=== PATIENT | female | born 1965 | race Caucasian/White ===

== ENCOUNTER 2018-06-25 15:32 | Emergency (ER) | payer MEDICAID ==
[2018-06-25 15:45] VITALS: BP 135/67
--- NOTE | 2018-06-25 15:59 | ED Physician Documentation ---
PD HPI HEENT - Stated complaint Stated Complaint: TOOTH PX - Chief complaint Chief Complaint: Heent - History obtained from History obtained from: Patient - History of Present Illness Timing - onset: How many days ago (4) Timing - duration: Days Timing - details: Abrupt onset (she says was chewing a popsicle or such and had several teeth break. Pain in them and is concerned about infection. Also pain meds. Has dental appt next week.) Location: Tooth (several teeth hurting, mostly left upper.) Associated symptoms: No: Fever Similar symptoms before: Has not had sx before Review of Systems Constitutional: denies: Fever, Chills Nose: denies: Rhinorrhea / runny nose, Congestion Throat: denies: Sore throat Respiratory: denies: Cough GI: denies: Abdominal Pain, Nausea, Vomiting PD PAST MEDICAL HISTORY - Past Medical History Cardiovascular: None Respiratory: Asthma Endocrine/Autoimmune: None GI: Ulcers REED MAN: Endometriosis : None HEENT: None Psych: Anxiety, Panic attacks, Post traumatic stress disorder Musculoskeletal: Fibromyalgia Derm: Other - Past Surgical History Past Surgical History: Yes General: Cholecystectomy, Appendectomy Ortho: Arthroscopic surgery /REED MAN: section, Hysterectomy, Oophrectomy - Present Medications Home Medications: Ambulatory Orders Medication Instructions Recorded Confirmed Butalb/Acetaminophen/Caffeine 1 - 2 tab PO Q6H PRN 01/06/13 06/09/18 [[id number]-Igrn 50-500-40] Zolmitriptan [Zomig] 10 mg PO DAILY PRN 01/06/13 06/09/18 Ondansetron [Zofran Odt] 8 mg PO Q6HR PRN 06/22/13 06/09/18 Antihemoph.fviii,B-Domain Del 2,050 unit IV BID PRN 02/28/14 06/09/18 [Xyntha] Diazepam [Valium] 10 mg PO Q12H PRN 05/26/14 06/09/18 Oxycodone HCl 10 mg PO Q4HR PRN 07/13/14 06/09/18 Diphenhydramine HCl/Zinc Acet 28.3 gm TP ONCE PRN 07/27/14 06/09/18 [Benadryl Itch Stopping Crm] oxyCODONE ER [OxyCONTIN] 40 mg PO BID 09/21/14 06/09/18 Pseudoephedrine [Sudafed] 30 mg PO DAILY 11/15/14 06/09/18 Acetaminophen [Tylenol] 80 mg PO Q4HR PRN 11/16/14 06/09/18 Heparin Sodium,Porcine/Pf [Heparin 5 ml IVP DAILY 11/16/14 06/09/18 1,000 Unit/10 (100/ml)] Albuterol Sulfate [Proair Hfa] 2 puffs INH DAILY PRN 10/25/15 06/09/18 Hydromorphone HCl [Dilaudid] 1 - 2 tab PO Q6H PRN 11/28/15 06/09/18 Estrogens, Conjugated [Premarin] 0.625 mg PO DAILY 03/20/16 06/09/18 Silver Sulfadiazine [Silvadene] 20 gm TP BID 07/14/16 06/09/18 Hyoscyamine Sulfate [Levsin-Sl] 1 - 2 tab SL Q4HR PRN MDD 12 tabs 08/06/16 Antihemoph.fviii,Hek B-Delete 2,000 vial IV BID 09/04/16 06/09/18 [Nuwiq] Azithromycin [Zithromax] 250 mg PO DAILY #4 tablet 06/25/18 Chlorhexidine Gluconate [Peridex] 5 ml MM BID #118 ml 06/25/18 Hydromorphone HCl [Dilaudid] 4 mg PO Q4H PRN #25 tablet 06/25/18 - Allergies Allergies/Adverse Reactions: Allergies Allergy/AdvReac Type Severity Reaction Status Date / Time lidocaine Allergy Severe Respiratory Verified 08/25/17 16:25 morphine Allergy Severe Respiratory Verified 08/25/17 16:25 Penicillins Allergy Severe Respiratory Verified 08/25/17 16:25 acetaminophen Allergy Intermediate Hives Verified 08/25/17 16:25 [From Darvocet-N 100] aminocaproic acid Allergy Intermediate Hives Verified 08/25/17 16:25 [From Amicar] cefaclor [From Ceclor] Allergy Intermediate Hives Verified 08/25/17 16:25 cephalexin monohydrate * Allergy Intermediate Hives Verified 08/25/17 16:25 [From Keflex] codeine [Codeine] Allergy Intermediate Hives Verified 08/25/17 16:25 doxycycline Allergy Intermediate Hives Verified 08/25/17 16:25 Iodinated Contrast- Oral and Allergy Intermediate Respiratory Verified 08/25/17 16:25 IV Dye propoxyphene napsylate * Allergy Intermediate Hives Verified 08/25/17 16:25 [From Darvocet-N 100] aspirin Allergy hemophilia Verified 08/25/17 16:25 hydrocortisone Allergy Anaphylaxis Verified 03/12/18 15:52 ibuprofen Allergy hemphilia Verified 08/25/17 16:25 iodine Allergy Rash Verified 08/25/17 16:25 silver * Allergy Rash Verified 08/25/17 16:25 [From Tegaderm AG Mesh] vancomycin Allergy Unknown Verified 06/09/18 15:44 chlorpromazine HCl * AdvReac Severe Respiratory Verified 08/25/17 16:25 [From Thorazine] NSAIDS (Non-Steroidal AdvReac Severe bleeding Verified 08/25/17 16:25 Anti-Inflamma ellis Allergy Anaphylaxis Uncoded 08/25/17 16:25 - Social History Does the pt smoke?: No Smoking Status: Never smoker Does the pt drink ETOH?: No Does the pt have substance abuse?: No - Immunizations Immunizations are current?: Yes - POLST Patient has POLST: No PD ED PE NORMAL - Vitals Vital signs reviewed: Yes - General General: Alert and oriented X 3, Well developed/nourished - HEENT HEENT: Pharynx benign. No: Dentition benign (several broken teeth that do appear newly broken (sharper edge) with caries concomitant. No appearance of infection. ) - Neck Neck: Supple, no meningeal sign, No adenopathy - Derm Derm: Normal color, Warm and dry - Extremities Extremities: No deformity, No tenderness to palpate - Neuro Neuro: Alert and oriented X 3, No motor deficit, Normal speech Results - Vitals Vitals: Vital Signs - 24 hr 06/25/18 15:42 Temperature 37.0 C Heart Rate 96 Respiratory 14 Rate Blood Pressure 135/67 H O2 Saturation 100 Oxygen O2 Source Room air PD MEDICAL DECISION MAKING - ED course Complexity details: considered differential (has recently broken teeth which are hurting, with chronic pain problems as underlying process. Had taken extra of regular Rx so is short oral Dilaudid for few days until Rx on 8th.), d/w patient Departure - Departure Disposition: 01 Home, Self Care Clinical Impression: Pain due to dental caries Condition: Stable Record reviewed to determine appropriate education?: Yes Instructions: ED Tooth Pain Follow-Up: Vanessa yT MD [Primary Care Provider] - Prescriptions: Azithromycin [Zithromax] 250 mg PO DAILY #4 tablet Chlorhexidine Gluconate [Peridex] 5 ml MM BID #118 ml Hydromorphone HCl [Dilaudid] 4 mg PO Q4H PRN #25 tablet PRN Reason: Pain Comments: Continue usual medications. Use the Dilaudid surgeon orally 1 every 6 hours if needed for pains. Zithromax antibiotic daily for 4 more days. Chlorhexidine oral rinse 2-3 times a day for the next week. Follow-up with a dentist next week as planned. Discharge Date/Time: 06/25/18 16:53
[2018-06-25] MEDS ORDERED: AZITHROMYCIN 250 MG TABLET PO STA (16:26)
[2018-06-25] MEDS ORDERED: HYDROmorphone 1 MG/ML CARPUJECT IM STA (16:26)
== END 2018-06-25 16:53 | disposition home or self-care (01) ==
LOC: ED 15:32
DX: K02.9 Dental caries, unspecified (principal); M79.7 Fibromyalgia
CPT/HCPCS: 96372; 99283; A9270; J1170

== ENCOUNTER 2018-07-28 11:06 | Emergency (ER) | payer MEDICAID ==
[2018-07-28] MEDS ORDERED: HYDROmorphone 2 MG TABLET PO STA (12:20)
[2018-07-28] MEDS ORDERED: fentaNYL 100 MCG/2 ML VIAL IVP STA (12:29)
--- NOTE | 2018-07-28 12:37 | ED Physician Documentation ---
History of Present Illness - Stated complaint Stated Complaint: SIDE PX/SYNCOPE - Chief complaint Chief Complaint: Neuro - Additonal information Additional information: 52-year-old female with a history of chronic syncope presents the emergency department for syncopal episodes in clinic today. The patient was being seen for a rib injury which occurred recently, The patient reports that pain causes her to have more episodes of syncope. The patient reports daily episodes of syncope and has been thoroughly worked up by cardiology neurology. The patient reports that pain is the source of her syncopal episodes. The patient is on chronic pain management with oral Dilaudid. The patient denies chest pain, palpitations, Abdominal pain, Dyspnea on exertion or recent illness. No other associated symptoms. Symptoms are described as moderate. Review of Systems Constitutional: denies: Fever, Chills Eyes: denies: Discharge Ears: denies: Ear pain Nose: denies: Congestion Throat: denies: Sore throat Cardiac: reports: Other (Right-sided chest wall pain). 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 : None HEENT: None Psych: Anxiety, Panic attacks, Post traumatic stress disorder Musculoskeletal: Fibromyalgia Derm: Other Other Past Medical History: hemophilia - Past Surgical History Past Surgical History: Yes General: Cholecystectomy, Appendectomy Ortho: Arthroscopic surgery /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, Hysterectomy, Oophrectomy - Present Medications Home Medications: Ambulatory Orders Medication Instructions Recorded Confirmed Butalb/Acetaminophen/Caffeine 1 - 2 tab PO Q6H PRN 01/06/13 07/28/18 [[id number] 50-500-40] Zolmitriptan [Zomig] 10 mg PO DAILY PRN 01/06/13 07/28/18 Ondansetron [Zofran Odt] 8 mg PO Q6HR PRN 06/22/13 07/28/18 Antihemoph.fviii,B-Domain Del 2,050 unit IV BID PRN 02/28/14 07/28/18 [Xyntha] Diazepam [Valium] 10 mg PO Q12H PRN 05/26/14 07/28/18 Oxycodone HCl 10 mg PO Q4HR PRN 07/13/14 07/28/18 Diphenhydramine HCl/Zinc Acet 28.3 gm TP ONCE PRN 07/27/14 07/28/18 [Benadryl Itch Stopping Crm] oxyCODONE ER [OxyCONTIN] 40 mg PO BID 09/21/14 07/28/18 Pseudoephedrine [Sudafed] 30 mg PO DAILY 11/15/14 07/28/18 Acetaminophen [Tylenol] 80 mg PO Q4HR PRN 11/16/14 07/28/18 Heparin Sodium,Porcine/Pf [Heparin 5 ml IVP DAILY 11/16/14 07/28/18 1,000 Unit/10 (100/ml)] Albuterol Sulfate [Proair Hfa] 2 puffs INH DAILY PRN 10/25/15 07/28/18 Hydromorphone HCl [Dilaudid] 1 - 2 tab PO Q6H PRN 11/28/15 07/28/18 Estrogens, Conjugated [Premarin] 0.625 mg PO DAILY 03/20/16 07/28/18 Silver Sulfadiazine [Silvadene] 20 gm TP BID 07/14/16 07/28/18 Hyoscyamine Sulfate [Levsin-Sl] 1 - 2 tab SL Q4HR PRN MDD 12 tabs 08/06/16 07/28/18 Antihemoph.fviii,Hek B-Delete 2,000 vial IV BID 09/04/16 07/28/18 [Nuwiq] Azithromycin [Zithromax] 250 mg PO DAILY #4 tablet 06/25/18 07/28/18 Chlorhexidine Gluconate [Peridex] 5 ml MM BID #118 ml 06/25/18 07/28/18 Hydromorphone HCl [Dilaudid] 4 mg PO Q4H PRN #25 tablet 06/25/18 07/28/18 - Allergies Allergies/Adverse Reactions: Allergies Allergy/AdvReac Type Severity Reaction Status Date / Time lidocaine Allergy Severe Respiratory Verified 08/25/17 16:25 morphine Allergy Severe Respiratory Verified 08/25/17 16:25 Penicillins Allergy Severe Respiratory Verified 08/25/17 16:25 acetaminophen Allergy Intermediate Hives Verified 08/25/17 16:25 [From Darvocet-N 100] aminocaproic acid Allergy Intermediate Hives Verified 08/25/17 16:25 [From Amicar] cefaclor [From Ceclor] Allergy Intermediate Hives Verified 08/25/17 16:25 cephalexin monohydrate * Allergy Intermediate Hives Verified 08/25/17 16:25 [From Keflex] codeine [Codeine] Allergy Intermediate Hives Verified 08/25/17 16:25 doxycycline Allergy Intermediate Hives Verified 07/28/18 11:38 Iodinated Contrast- Oral and Allergy Intermediate Respiratory Verified 07/28/18 11:38 IV Dye propoxyphene napsylate * Allergy Intermediate Hives Verified 07/28/18 11:38 [From Darvocet-N 100] aspirin Allergy hemophilia Verified 07/28/18 11:38 hydrocortisone Allergy Anaphylaxis Verified 07/28/18 11:38 ibuprofen Allergy hemphilia Verified 07/28/18 11:38 iodine Allergy Rash Verified 07/28/18 11:38 silver * Allergy Rash Verified 07/28/18 11:38 [From Tegaderm AG Mesh] vancomycin Allergy Unknown Verified 07/28/18 11:38 chlorpromazine HCl * AdvReac Severe Respiratory Verified 07/28/18 11:38 [From Thorazine] NSAIDS (Non-Steroidal AdvReac Severe bleeding Verified 07/28/18 11:38 Anti-Inflamma ellis Allergy Anaphylaxis Uncoded 07/28/18 11:38 - Social History Does the pt smoke?: No Smoking Status: Never smoker Does the pt drink ETOH?: No Does the pt have substance abuse?: No - Immunizations Immunizations are current?: Yes - POLST Patient has POLST: No PD ED PE NORMAL - General General: Alert and oriented X 3, No acute distress - HEENT HEENT: Atraumatic, PERRL, EOMI, Ears normal - Neck Neck: Supple, no meningeal sign - Cardiac Cardiac: RRR, Strong equal pulses, Other (The patient is tender in her right sided chest wall, there is no crepitus or subcutaneous emphysema) - Respiratory Respiratory: No respiratory distress, Clear bilaterally - Abdomen Abdomen: Soft, Non tender - Derm Derm: Normal color - Extremities Extremities: No deformity - Neuro Neuro: Alert and oriented X 3, Normal speech - Psych Psych: Normal affect Results - Vitals Vitals: Vital Signs - 24 hr 07/28/18 07/28/18 07/28/18 11:10 12:53 13:58 Temperature 36.2 C L 36.6 C Heart Rate 86 89 87 Respiratory 16 16 16 Rate Blood Pressure 133/93 H 111/59 L 109/70 O2 Saturation 100 97 99 Oxygen O2 Source Room air - EKG (time done) No standard instances Rate: Rate (enter#) (77) Rhythm: NSR Intervals: Normal SC QRS: Normal Ischemia: Non specific changes - Labs Labs: Laboratory Tests 07/28/18 09:55 Troponin I < 0.04 - Rads (name of study) Rib Radiology: Final report received, See rad report (IMPRESSION: No fracture is detected) PD MEDICAL DECISION MAKING - ED course ED course: The patient's syncope is chronic, the patient had labs drawn at the clinic just prior to arrival. Presently, the patient's pain appears to be under control and the patient appears appropriate for discharge since there is no significant change that would necessitate admission to the hospital or specialty consultation. The patient appears appropriate for discharge and ongoing outpatient management. I discussed with her the findings and plan and she understands and agrees. Departure - Departure Disposition: 01 Home, Self Care Clinical Impression: Rib pain Syncope Qualifiers: Syncope type: unspecified Qualified Code(s): R55 - Syncope and collapse Chronic pain Qualifiers: Chronic pain type: chronic pain syndrome Qualified Code(s): G89.4 - Chronic pain syndrome Condition: Good Instructions: ED Fainting Unkn Cause, ED Contusion Chest Wall Ch Follow-Up: Vanessa Ty MD [Primary Care Provider] - Within 1 week Comments: Please return to the ED for worsening symptoms or any concerns
--- NOTE | 2018-07-28 13:15 | XRAY Report ---
Reason: fall, pain Procedure Date: 07/28/2018 Accession Number: [id number] / [id number] Procedure: XR - Ribs w/PA Chest RT CPT Code: FULL RESULT: EXAM: RIGHT RIB RADIOGRAPHY EXAM DATE: 07/28/2018 12:56 AM. CLINICAL HISTORY: Fall, pain. COMPARISON: None. TECHNIQUE: 1 view of the chest and 1 view of the ribs. FINDINGS: The left oblique view could not be obtained due to the patient's inability to cooperate. Bones: Normal. No fracture or bone lesion. Lungs: There are likely calcified pulmonary nodules which measure up to 0.9 cm. Mediastinum: Heart and mediastinal contours are unremarkable. Other: None. IMPRESSION: No fracture is detected, the oblique view of the left rib cage could not be obtained. Multiple pulmonary nodules are detected. [facility]
[2018-07-28 13:59] VITALS: BP 109/70
== END 2018-07-28 14:16 | disposition home or self-care (01) ==
LOC: ED 11:06
DX: R07.81 Pleurodynia (principal); R55 Syncope and collapse; G89.29 Other chronic pain
CPT/HCPCS: 36415; 80053; 83690; 84484; 85025; 93005; 99284